=== PATIENT | female | born 1955 | race American Indian/Alaskan Native ===

== ENCOUNTER 2019-01-23 07:46 | Outpatient (CLI) | payer MEDICARE, OTHER ==
[2019-01-23] MEDS ORDERED: SINCALIDE 5 MCG VIAL IV ONE ×2 (08:49)
[2019-01-23] MEDS ORDERED: WATER FOR INJ Sterile (PF) 10 ML ONE (08:50)
--- NOTE | 2019-01-23 10:54 | Nuclear Medicine Report ---
NUCLEAR MEDICINE HEPATOBILIARY SCAN INDICATION: R11.0 NAUSEA/R63.4 ABNORMAL LOSS OF WEIGHT/Z12.11 COLON CANCER SC. TECHNIQUE: Radiotracer: Tc-99m mebrofenin (by IV): 5.79 mCi. Gallbladder Stimulant: 1.4 mcg of CCK. FINDINGS: Hepatic activity: Normal. Biliary activity: Normal. Common bile duct activity at 10 minutes. Gallbladder activity: Normal at 45 minutes. Small bowel activity: Normal at 10 minutes. The gallbladder ejection fraction measures 82%. The patient reports mild cramping similar to her presented symptoms. IMPRESSION: No biliary obstruction. Normal gallbladder ejection fraction measuring 82%. Symptomatology as described. Signer Name: Mikhail Hinkle Jr, MD Signed: 01/23/2019 10:49 AM Workstation Name: [id number]
== END 2019-01-23 07:47 | disposition home or self-care (01) ==
LOC: NM 07:46
PROVIDERS: ATTEND Internal Medicine Gastroenterology
DX: Z12.11 Encounter for screening for malignant neoplasm of colon (principal); R11.0 Nausea; R63.4 Abnormal weight loss; K57.90 Diverticulosis of intestine, part unspecified, without perforation or abscess without bleeding
CPT/HCPCS: 78227; A9537; J2805